=== PATIENT | female | born 1970 | race Caucasian/White ===

== ENCOUNTER 2016-12-31 23:43 | Emergency (ER) | payer OTHER ==
[~2016-12-31] VITALS: Ht 154.9 cm; Wt 84.3 kg
[2016-12-31 23:51] VITALS: TEMP 36.5; Ht 154.9 cm; Wt 84.3 kg
[2017-01-01] MEDS ORDERED: XYLOCAINE 1%/SOD BICARB 20 ML VIAL INFIL ONE (00:13)
[2017-01-01] MEDS ORDERED: GLC/500 PO (00:14)
[2017-01-01] MEDS ORDERED: OXYCODONE IR HOME PACK PO ONE (00:30)
[2017-01-01] MEDS ORDERED: SEPTRA DS HOME PACK 1 EA VIAL PO ONE (00:30)
[2017-01-01] MEDS ORDERED: SULF800T23 PO (00:37)
[2017-01-01 00:39] VITALS: BP 118/71; PULSE 82; O2SAT 99
--- NOTE | 2017-01-01 04:25 | EMERGENCY ROOM VISIT NOTE ---
History First contact with patient: 00:20 Chief Complaint: PELVIC PAIN Stated Complaint: SEVERE PAIN IIN LABIA AREA History of Present Illness The patient is a 46 year old female who presents to the Emergency Room with complaints of Right labial pain and swelling for the past few days. Patient has been squeezing and picking at the area. No history of abscesses before. No IV drug abuse. Patient denies chest pain, dyspnea, abdominal pain, vomiting , diarrhea, urinary symptoms, fever, chills. She is tolerate by mouth fluids and food. Review of Systems See HPI for pertinent positives & negatives. A total of 6 systems reviewed and were otherwise negative. Past Medical/Surgical History Medical Problems: (1) Cholecystectomy (2) Congenital hydrocephalus (3) CVA/TIa (4) Dilation and curettage (5) endometrial ablation (6) History of - tubal ligation (7) Polycystic ovaries (8) TOBACCO USE DISORDER Surgical Problems: (1) History of section Family History Patient reports no known family medical history. Social History Smoking Status: Never Smoker Alcohol Use: none Drug Use: none Marital Status: Occupation Status: employed Current/Historical Medications Scheduled Metformin Hcl (Glucophage), 500 MG PO BID Sulfa/Trimethoprim (Bactrim Ds 800MG/160MG), 1 TAB PO BID Allergies Coded Allergies: BEE STING (Verified Allergy, Unknown, Unknown., 01/04/16) Physical Exam Vital Signs Date Time Temp Pulse Resp B/P (MAP) Pulse Ox O2 Delivery O2 Flow Rate FiO2 01/01/17 00:39 82 16 118/71 99 Room Air 12/31/16 23:51 36.5 82 16 125/83 99 Room Air Pain Rating (0-10): 7.0 Physical Exam VITALS: Vitals are noted on the nurse's note and reviewed by myself. Vital signs stable. GENERAL: Pleasant female who appears in pain, in no acute distress, nondiaphoretic, well-developed well-nourished. SKIN: Capillary reflex less than 2 seconds. HEENT: Normocephalic. PERRLA. EOMI. Nares patent. Mucous membranes moist. Neck is supple without nuchal rigidity. HEART: Regular rate and rhythm without murmurs gallops or rubs. LUNGS: Clear to auscultation bilaterally without wheezes, rales or rhonchi. No retractions or accessory muscle use. ABDOMEN: Positive bowel sounds x 4. Normal tympanic percussion. Soft, nontender, without masses or organomegaly. Sutton sign negative. No guarding or rebound tenderness. exam: Right labia erythematous and edematous with fluctuance concerning for abscess. Sports Agent present and wound culture taken and sent to lab MUSCULOSKELETAL: No gross musculoskeletal defects . NEURO: Patient was alert and oriented to person place and time. Normal sensation to light and sharp touch. No focal neurological deficits. Medical Decision & Procedures Medications Administered Medications (Trade) Dose Ordered Sig/Josh Route Start Time Stop Time Status Last Admin Dose Admin Trimethoprim/ Sulfamethoxazole (Sulfameth/ Trimeth Ds 800/ 160MG Home Pack) 1 homepack UD ONCE PO 01/01/17 00:30 01/01/17 00:34 DC 01/01/17 00:50 1 HOMEPACK Oxycodone HCl (Roxicodone Immediate Rel 5MG Home Pack) 1 homepack UD ONCE PO 01/01/17 00:30 01/01/17 00:34 DC 01/01/17 00:50 1 HOMEPACK Procedure Incision & Drainage Indication: Abscess. Location: labia Verbal consent was obtained after the risks and benefits were explained, including but not limited to bleeding, scarring, infection, pain, and bone/joint /nerve damage. At this time, the risks of the procedure are less than the risks of NOT performing the procedure. A time out was taken and the correct patient and site identified. The skin was prepped with betadine and a sterile field set. The wound was anesthetized with 3 ml of 1% lidocaine without epinephrine. The abscess cavity was entered with a number 11 blade and purulent material expressed. Copious irrigation was performed using saline. The wound was explored for foreign bodies and none found. Debridement was not performed. Word catheter Packing placed with 3 mL of fluid and a sterile dressing applied. Detailed wound care instructions and signs and symptoms of worsening infection reviewed with the patient. No complications and the patient tolerated the procedure well. ED Course Prior records reviewed and summarized as above. Triage Nursing notes reviewed. The patient's history was concerning for swelling and redness of the skin. Differential diagnosis: Etiologies such as cellulitis, abscess, MRSA infection, necrotizing fasciitis, dermatitis, drug eruption, as well as others were entertained.. Physical examination: The physical examination was consistent with abscess ER treatment provided: I&D as above On reassessment the patient felt better. Diagnostics interpreted by me: The labs revealed culture pending Exam and history seem consistent with right labial abscess. Word catheter was placed. Patient started on antibiotics. Patient does not feel at risk for STIs. She follows with [facility]. She is advised follow-up in a few days for definitive care for her abscess that was drained. She is advised to take medications as directed. She is advised to return to the ER immediately for fevers, severe pain, worsening signs or symptoms or as needed. Patient had no lymphangitis. She is afebrile and nontoxic. She is well-appearing. By the evaluation outlined above emergent etiologies such as abscess, necrotizing fasciitis, DVT, as well as others were deemed relatively unlikely. The pt informed about the findings as listed above. All questions were answered and pleased with the treatment. Return instructions were outlined and the patient was discharged in stable condition. Outpatient prescription management: Bactrim Referral: The patient was referred back to [facility]NA[facility] and/or primary care physician for follow -up in 2 to 3 days for a recheck of the current condition. Medical Decision As above Impression Primary Impression: Abscess of right genital labia Departure Information Dispostion Home / Self-Care Condition GOOD Prescriptions Sulfa/Trimethoprim (Bactrim Ds 800MG/160MG) Tab 1 TAB PO BID for 9 Days, #18 TAB Prov: Vandana Doherty PA-C 01/01/17 Referrals Willem Kurtz,D[facility]. No Doctor, Assigned (PCP) Forms WORK / SCHOOL INSTRUCTIONS, HOME CARE DOCUMENTATION FORM, IMPORTANT VISIT INFORMATION Patient Instructions [facility], ED Abscess IandD Additional Instructions Trimethoprim-Sulfamethoxazole(Bactrim DS): Take one pill twice daily for 10 days for your skin infection. All antibiotics can cause diarrhea. If this occurs and you feel worse or it does not resolve in 1-2 days follow up with your doctor or return to the Emergency Department as this could be signs of serious underlying problems. Any medication can cause an allergic reaction, stop the pills immediately and return to the ER for rash, hives, breathing difficulties, or swelling. Ibuprofen(Motrin, Advil) may be used for fever or pain. Use 600mg every six hours as needed. Take with food. Avoid using more than 2400mg in a 24 hour period. Do not use 2400mg per day for more than three consecutive days without physician direction. Prolonged inappropriate use can lead to stomach upset or ulcers. (AND/OR) Acetaminophen(Tylenol) may be used for fever or pain. Use 1000mg every six hours as needed. Avoid using more than 3000mg in a 24 hour period. Leave Word catheter in place. Keep area dry and clean. Keep a pad on as this might drain. Do not pull this out. Rest and drink plenty of fluids. Continue current medications. Return to the ER for severe pain, persistent fevers, spreading redness, or any worsening of your condition. Follow up with your [facility]NA[facility] within 2-3 days for a recheck of the current condition.
== END 2017-01-01 00:54 | disposition home or self-care (01) ==
LOC: C.EDB 23:44 → C.EDC 01-01 00:54
DX: N76.4 Abscess of vulva (principal); Q03.9 Congenital hydrocephalus, unspecified; E28.2 Polycystic ovarian syndrome; Z86.73 Personal history of transient ischemic attack (TIA), and cerebral infarction without residual deficits; Z98.51 Tubal ligation status; Z79.84 Long term (current) use of oral hypoglycemic drugs

== ENCOUNTER 2017-07-19 20:31 | Emergency (ER) | payer OTHER ==
[~2017-07-19] VITALS: Ht 152.4 cm; Wt 88.9 kg
[~2017-07-19 20:31] MED LIST: GLC/500 PO
[2017-07-19 20:38] VITALS: TEMP 37.2; Ht 152.4 cm; Wt 88.9 kg
--- NOTE | 2017-07-19 20:57 | EMERGENCY ROOM VISIT NOTE ---
History Report prepared by Pineda: Dominic Yo Under the Supervision of: Dr. Amrit Shen M.D. First contact with patient: 20:47 Chief Complaint: FLU LIKE SX Stated Complaint: NIXON,NAUSEA,FLU History of Present Illness The patient is a 46 year old female who presents to the Emergency Room with complaints of persistent illness for the past 2 days. The patient states that she has been having body aches, headaches, cough, nausea, and she vomited. No hematemesis coffee-ground emesis bilious vomiting hematochezia or melena. No hemoptysis. 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 The patient states that she has a history of diverticulitis, and she states that she smokes. She denies any chances of . Source of History: patient Onset: a few days ago Position: other (global) Quality: other (illness) Timing: other (persistent) Associated Symptoms: + headache, + cough, + nausea, + vomiting Note: Associated symptoms: Body aches. Review of Systems See HPI for pertinent positives and negatives. A total of ten systems were reviewed and were otherwise negative. Past Medical & Surgical Medical Problems: (1) Cholecystectomy (2) Congenital hydrocephalus (3) CVA/TIa (4) Dilation and curettage (5) endometrial ablation (6) History of - tubal ligation (7) Polycystic ovaries (8) TOBACCO USE DISORDER Surgical Problems: (1) History of section Family History Patient reports no known family medical history. Social History Smoking Status: Current Some Day Smoker Alcohol Use: none Drug Use: none Marital Status: Occupation Status: employed Current/Historical Medications Scheduled Metformin Hcl (Glucophage), 500 MG PO BID Ondasetron Odt (Zofran Odt), 4 MG SL Q8H Oseltamivir (Tamiflu), 75 MG PO BID Spironolactone (Aldactone), 50 MG PO DAILY Scheduled PRN Guaifenesin/Codeine (Robitussin-Ac Syrup), 5 ML PO Q4H PRN for Cough Allergies Coded Allergies: BEE STING (Verified Allergy, Unknown, Unknown., 01/04/16) Physical Exam Vital Signs Date Time Temp Pulse Resp B/P (MAP) Pulse Ox O2 Delivery O2 Flow Rate FiO2 07/19/17 21:28 108 18 120/76 94 07/19/17 20:57 108 07/19/17 20:38 37.2 117 18 120/76 94 Room Air Physical Exam GENERAL: Awake, alert, well-appearing, in no distress HENT: Normocephalic, Atraumatic. no hemotympanum bilaterally, momin sign negative bilaterally. Oropharynx unremarkable. EYES: Normal conjunctiva. Sclera non-icteric. PERRL bilaterally. EOMI bilaterally. NECK: Supple. No nuchal rigidity. FROM. No JVD. No C-spine tenderness. RESPIRATORY: Clear to auscultation. No wheezes, rhonchi or rales bilaterally. CARDIAC: Tachycardic rate, normal rhythm. Extremities warm and well perfused. Equal palpable radial pulses to the bilateral upper extremities. Equal palpable DP pulses to the bilateral lower extremities. ABDOMEN: Soft, non-distended. No tenderness to palpation. No rebound or guarding. No masses. Rovsing Negative. RECTAL: Deferred. MUSCULOSKELETAL: Chest examination reveals no tenderness. The back is symmetrical on inspection without obvious abnormality. There is no CVA tenderness to palpation. No joint edema. LOWER EXTREMITIES: Calves are equal size bilaterally and non-tender. No edema. No discoloration. NEURO: Normal sensorium. No sensory or motor deficits noted. No pronator drift. No facial droop. No dysarthria. SKIN: No rash or jaundice noted. Medical Decision & Procedures Medications Administered Medications (Trade) Dose Ordered Sig/Josh Route Start Time Stop Time Status Last Admin Dose Admin Oseltamivir Phosphate (Tamiflu Cap) 75 mg NOW STAT PO 07/19/17 20:59 07/19/17 21:01 DC 07/19/17 21:23 75 MG Ondansetron HCl (Zofran Odt) 4 mg ONE ONCE PO 07/19/17 21:00 07/19/17 21:01 DC 07/19/17 21:23 4 MG Ondansetron HCl (ZOFRAN ODT 4MG Home Pack) 1 homepack UD ONCE PO 07/19/17 21:00 07/19/17 21:01 DC 07/19/17 21:23 1 HOMEPACK ED Course 2046: The patient was evaluated in room A12. A complete history and physical exam was performed. Patient's symptoms are consistent with influenza and given that she reports being tested positive for flu yesterday we'll discharge her with Tamiflu. Patient also having nausea, will discharge with prescription Zofran ODT. Return precautions were discussed with the patient and family and they were agreeable. All questions were answered, and written and verbal discharge instructions were given to the patient. 2058: Tamiflu Cap 75mg PO 2100: Zofran Odt Home Pack PO, Zofran Odt 4mg PO Medical Decision Patient's symptoms are consistent with influenza and given that she reports being tested positive for flu yesterday we'll discharge her with Tamiflu. Patient also having nausea, will discharge with prescription Zofran ODT. Return precautions were discussed with the patient and family and they were agreeable. All questions were answered, and written and verbal discharge instructions were given to the patient. Medication Reconcilliation Current Medication List: was personally reviewed by me Blood Pressure Screening Patient's blood pressure: Normal blood pressure Impression Primary Impression: Influenza-like symptoms Scribe Attestation The scribe's documentation has been prepared under my direction and personally reviewed by me in its entirety. I confirm that the note above accurately reflects all work, treatment, procedures, and medical decision making performed by me. The chart was completed utilizing [employer] Speech voice recognition software. Grammatical errors, random word insertions, pronoun errors, and incomplete sentences are an occasional consequence of this system due to software limitations, ambient noise, and hardware issues. Any formal questions or concerns about the content, text, or information contained within the body of this dictation should be directly addressed to the physician for clarification. Departure Information Dispostion Home / Self-Care Prescriptions Ondasetron Odt (ZOFRAN ODT) 4 Mg Tab 4 MG SL Q8H for Nausea, #30 TAB Prov: Amrit Shen M.D. 07/19/17 Oseltamivir (Tamiflu) 75 Mg Cap 75 MG PO BID for 5 Days, #10 CAP Prov: Amrit Shen M.D. 07/19/17 Referrals No Doctor, Assigned (PCP) Forms HOME CARE DOCUMENTATION FORM, IMPORTANT VISIT INFORMATION Patient Instructions ED Flu, My [facility]
[2017-07-19] MEDS ORDERED: OSELTAMIVIR PHOSPHATE 75 MG CAP PO STA (20:59)
[2017-07-19] MEDS ORDERED: ONDANSETRON 4MG OD TAB PO ONE (21:00)
[2017-07-19] MEDS ORDERED: ONDANSETRON HOME PACK 4MG OD TAB PO ONE (21:00)
[2017-07-19] MEDS ORDERED: ONDA4TAB10 SL (21:14)
[2017-07-19] MEDS ORDERED: OSEL75CA12 PO (21:14)
[2017-07-19 21:28] VITALS: BP 120/76; PULSE 108; O2SAT 94
[2017-07-19] MEDS ORDERED: GUAISYP4 PO (21:29)
[2017-07-19] MEDS ORDERED: SPIR50TA2 PO (21:29)
== END 2017-07-19 21:30 | disposition home or self-care (01) ==
LOC: C.EDB 20:32 → C.EDA 21:30
DX: J11.2 Influenza due to unidentified influenza virus with gastrointestinal manifestations (principal); R11.2 Nausea with vomiting, unspecified; R51 Headache; R05 Cough; F17.200 Nicotine dependence, unspecified, uncomplicated; Z79.899 Other long term (current) drug therapy

== ENCOUNTER 2018-03-01 16:57 | Emergency (ER) | payer OTHER ==
[~2018-03-01] VITALS: Ht 154.9 cm; Wt 86.7 kg
[~2018-03-01 16:57] MED LIST changes: +GUAISYP4 PO; +SPIR50TA2 PO
[2018-03-01 17:00] VITALS: TEMP 36.6; Ht 154.9 cm; Wt 86.7 kg
[2018-03-01] MEDS ORDERED: ACETAMINOPHEN IV 100 ML IV STA (17:22)
[2018-03-01] MEDS ORDERED: ONDANSETRON INJ 2 MG/ML 2 ML VIAL IV STA (17:22)
[2018-03-01] MEDS ORDERED: SODIUM CHLORIDE 0.9% 1000ML 1,000 ML IV STA (17:22)
[2018-03-01] MEDS ORDERED: OPTIRAY 320 IV PRN (17:30)
--- NOTE | 2018-03-01 17:52 | EMERGENCY ROOM VISIT NOTE ---
ED Visit Note First contact with patient: 17:09 CHIEF COMPLAINT: Right-sided abdominal pain HISTORY OF PRESENTING ILLNESS: This is a 47-year-old female who presents to the emergency department by private vehicle with complaint of right-sided abdominal pain for the past 4 days. She states the pain started out off and on, but has progressively gotten worse and is now constant. She states the worst pain is in the right lower part of her abdomen and it radiates up and across the top at times. The pain is worse with moving around, better with resting and lying still, currently rates as 7/10. She has tried ibuprofen for the pain with minimal relief. She has had associated nausea and a decreased appetite since yesterday, but denies any vomiting. She states that she has loose bowel movements, but states this is not unusual for her and she thinks that she has IBS, she is currently being worked up for this. She states that her pain is most intense right before and during a bowel movement, and feels better after moving her bowels. She denies any bloody or black stools. She denies any urinary symptoms. She denies any chest pain, shortness of breath, dizziness, syncope, back pain, unusual rash. She does report a history of diverticulitis, but states she has not had a flare in a while. She also has a history of PCOS she reports surgical history of cholecystectomy, bilateral tubal ligation, and uterine ablation, states she has not had a period since 2011. REVIEW OF SYSTEMS: A complete 10 point review of systems was reviewed with the patient with pertinent positives and negatives as per history of present illness. All else were negative. PAST MEDICAL HISTORY: Reviewed in chart, see problem list below. FAMILY HISTORY: She reports a strong family history of colon cancer and diverticulitis. SOCIAL HISTORY: Lives at home. She is a current everyday smoker. She denies alcohol use. ALLERGIES: Reviewed in chart, see below. PHYSICAL EXAM: CONSTITUTIONAL: Pleasant and cooperative. No acute distress. Mildly dehydrated , but otherwise well appearing and well nourished. HEENT: Normocephalic, atraumatic. Pupils equal, round and reactive to light, EOMI. TMs normal. Pharynx normal. Tacky mucous membranes. NECK: Supple, full active range of motion without discomfort. RESPIRATORY: Clear to auscultation bilaterally with no wheezing, crackles, rhonchi or stridor. Equal expansion bilaterally. CARDIOVASCULAR: Regular rate and rhythm with no murmurs, rubs or gallops. Normal peripheral perfusion. No edema. GASTROINTESTINAL: Diffuse abdominal tenderness throughout the right mid and lower abdomen to the midline, mild right upper quadrant tenderness. Positive McBurney's, positive Rovsing and psoas signs. Negative rebound, no guarding. Soft, nondistended, obese abdomen. No palpable masses or HSM. Bowel sounds present in all quadrants. MUSCULOSKELETAL: Full range of motion of all joints without discomfort. INTEGUMENTARY: No rash or other significant dermatologic conditions noted. NEUROLOGIC: Alert and oriented X 4 with normal affect. Normal strength and sensation in all 4 extremities. No focal neurologic deficits noted. Normal speech. Normal gait observed. ED COURSE AND MEDICAL DECISION MAKING: CC: Patient presenting with complaint of right-sided abdominal pain DIFFERENTIAL DIAGNOSIS: Includes, but not limited to gastritis, food poisoning , colitis, diverticulitis, appendicitis, IBS, ovarian pathology, mesenteric adenitis, intra-abdominal abscess, constipation, gas pain, among others. INTERPRETATION OF LABS: No leukocytosis, no anemia, normal platelets, no significant electrolyte abnormalities, normal renal function, normal liver enzymes and lipase. Negative troponin. UA negative for infection, consistent with mild dehydration. Negative urine . IMAGING: CT OF THE ABDOMEN AND PELVIS WITH CONTRAST CLINICAL HISTORY: Right lower quadrant abdominal pain. COMPARISON STUDY: CT of the abdomen and pelvis January 03, 2016. TECHNIQUE: Following IV administration of 115 mL of Optiray-320, axial images of the abdomen and pelvis were obtained from the lung bases to the proximal femurs. Images were reviewed in the axial, sagittal, and coronal planes. IV contrast was administered without complication. A dose lowering technique was utilized adhering to the principles of ALARA. CT DOSE: 1055.62 mGy.cm FINDINGS: Lung bases are clear. There is no biliary ductal dilatation status post cholecystectomy. The liver, spleen, adrenal glands, kidneys and pancreas are unremarkable. There is no hydronephrosis or hydroureter. The caliber and wall thickness of small and large bowel are normal. Extensive colonic diverticulosis is noted without evidence for acute diverticulitis. There is no lymphadenopathy or abscess. No suspicious osseous lesions are noted. Major vasculature is patent. Small fat-containing ventral and umbilical hernias are noted. IMPRESSION: 1. No acute process within the abdomen or pelvis. 2. Normal appendix. No bowel obstruction. 3. Extensive sigmoid diverticulosis without evidence for acute diverticulitis. EKG: Shows normal sinus rhythm with a rate of 82 bpm, no ST or T-wave changes, no ectopy, no significant change when compared to previous EKG from 01/29/2014 by my interpretation. MEDICATION RECONCILIATION: I attest that I have personally reviewed the patient 's current medication list. INITIAL VITAL SIGNS REVIEW: I reviewed the patient's initial vital signs and interpret them as follows: T: Afebrile; BP: Mildly hypertensive; HR: Mildly tachycardic; RR: Within normal limits; Pulse Ox: Within normal limits on room air. Blood pressure screening: The patient was found to have an elevated blood pressure, which was felt to be situational. SUMMARY: Patient was evaluated at bedside, history and physical exam performed. Patient is alert and oriented, no acute distress, resting calmly in stretcher. Patient is diffusely tender throughout the right side of the abdomen, most tender in the right lower quadrant. No acute abdomen. Normal bowel sounds. EKG reviewed at bedside, noting normal sinus rhythm with no acute changes. Orders were placed at bedside for labs, UA and urine , IV fluids for hydration, IV Zofran for nausea, CT abdomen/pelvis with IV contrast to evaluate for abdominal pain. The patient was offered something for her pain, she did not want any narcotics. She was offered IV Tylenol which she did except. Patient discussed with Dr. Galicia, who agrees with my assessment and plan. Labs and imaging reviewed as above, no acute findings to explain patient's pain. Patient has had minimal improvement in her pain after the IV Ofirmev, she was offered something additional, to which she did agree. Bentyl IM 20 mg was ordered. Patient reassessed multiple times throughout ED stay, she has remained stable, tachycardia and hypotension resolved after fluids, and she reports that her pain is improved after the Bentyl. Patient was updated on all results and plan for discharge, she was encouraged to follow closely with her PCP. Rx for Bentyl was sent to the pharmacy, patient was educated regarding its use. She was also encouraged to follow-up with her workgroup leader. Patient was also given strict return precautions should her symptoms worsen, she verbalized understanding. Patient was discharged home in stable condition and ambulatory. Problem List Medical Problems: (1) Cholecystectomy Status: Resolved (2) Congenital hydrocephalus Status: Resolved (3) Dilation and curettage Status: Resolved (4) endometrial ablation Status: Resolved (5) History of - tubal ligation Status: Resolved (6) Polycystic ovaries Status: Chronic (7) TOBACCO USE DISORDER Status: Chronic Surgical Problems: (1) History of section Status: Resolved Current/Historical Medications Scheduled Dicyclomine Hcl (Bentyl), 1 CAP PO TID Metformin Hcl (Glucophage), 500 MG PO BID Spironolactone (Aldactone), 50 MG PO DAILY Allergies Coded Allergies: BEE STING (Verified Allergy, Unknown, Unknown., 03/01/18) Vital Signs Date Time Temp Pulse Resp B/P (MAP) Pulse Ox O2 Delivery O2 Flow Rate FiO2 03/01/18 20:39 70 18 99/68 98 03/01/18 19:21 72 18 99/51 98 Room Air 03/01/18 18:06 83 03/01/18 17:00 36.6 105 20 132/89 98 Room Air Laboratory Results 03/01/18 17:43 Red Blood Count 5.24, Mean Corpuscular Volume 89.7, Mean Corpuscular Hemoglobin 30.7, Mean Corpuscular Hemoglobin Concent 34.3, Mean Platelet Volume 10.9, Neutrophils (%) (Auto) 63.4, Lymphocytes (%) (Auto) 25.3, Monocytes (%) (Auto) 7.9, Eosinophils (%) (Auto) 2.6, Basophils (%) (Auto) 0.4, Neutrophils # (Auto) 5.33, Lymphocytes # (Auto) 2.12, Monocytes # (Auto) 0.66, Eosinophils # (Auto) 0.22, Basophils # (Auto) 0.03 03/01/18 17:43 Test 03/01/18 17:43 White Blood Count 8.39 K/uL (4.8-10.8) Red Blood Count 5.24 M/uL (4.2-5.4) Hemoglobin 16.1 g/dL (12.0-16.0) Hematocrit 47.0 % (37-47) Mean Corpuscular Volume 89.7 fL (80-100) Mean Corpuscular Hemoglobin 30.7 pg (25-34) Mean Corpuscular Hemoglobin Concent 34.3 g/dl (32-36) Platelet Count 210 K/uL (130-400) Mean Platelet Volume 10.9 fL (7.4-10.4) Neutrophils (%) (Auto) 63.4 % Lymphocytes (%) (Auto) 25.3 % Monocytes (%) (Auto) 7.9 % Eosinophils (%) (Auto) 2.6 % Basophils (%) (Auto) 0.4 % Neutrophils # (Auto) 5.33 K/uL (1.4-6.5) Lymphocytes # (Auto) 2.12 K/uL (1.2-3.4) Monocytes # (Auto) 0.66 K/uL (0.11-0.59) Eosinophils # (Auto) 0.22 K/uL (0-0.5) Basophils # (Auto) 0.03 K/uL (0-0.2) RDW Standard Deviation 41.7 fL (36.4-46.3) RDW Coefficient of Variation 12.7 % (11.5-14.5) Immature Granulocyte % (Auto) 0.4 % Immature Granulocyte # (Auto) 0.03 K/uL (0.00-0.02) Urine Color DK YELLOW Urine Appearance CLEAR (CLEAR) Urine pH 5.0 (4.5-7.5) Urine Specific Bard 1.031 (1.000-1.030) Urine Protein NEG (NEG) Urine Glucose (UA) NEG (NEG) Urine Ketones NEG (NEG) Urine Occult Blood NEG (NEG) Urine Nitrite NEG (NEG) Urine Bilirubin NEG (NEG) Urine Urobilinogen NEG (NEG) Urine Leukocyte Esterase NEG (NEG) Urine Test NEG (NEG) Anion Gap 10.0 mmol/L (3-11) Est Creatinine Clear Calc Drug Dose 74.8 ml/min Estimated GFR () 84.8 Estimated GFR (Non- 73.2 BUN/Creatinine Ratio 17.0 (10-20) Calcium Level 8.9 mg/dl (8.5-10.1) Total Bilirubin 0.2 mg/dl (0.2-1) Direct Bilirubin mg/dl (0-0.2) Aspartate Amino Transf (AST/SGOT) 21 U/L (15-37) Alanine Aminotransferase (ALT/SGPT) 36 U/L (12-78) Alkaline Phosphatase 64 U/L (45-117) Troponin I < 0.015 ng/ml (0-0.045) Total Protein 7.0 gm/dl (6.4-8.2) Albumin 3.6 gm/dl (3.4-5.0) Lipase 124 U/L (73-393) Chemistry Specimen Hemolysis Medications Administered Medications (Trade) Dose Ordered Sig/Josh Route Start Time Stop Time Status Last Admin Dose Admin Sodium Chloride 1,000 ml @ 999 mls/hr Q1H1M STAT IV 03/01/18 17:22 03/01/18 18:22 DC 03/01/18 18:09 999 MLS/HR Ondansetron HCl (Zofran Inj) 4 mg NOW STAT IV 03/01/18 17:22 03/01/18 17:27 DC 03/01/18 18:09 4 MG Acetaminophen 100 ml @ 400 mls/hr NOW STAT IV 03/01/18 17:22 03/01/18 17:36 DC 03/01/18 18:12 400 MLS/HR Dicyclomine HCl (Bentyl Inj) 20 mg NOW ONCE IM 03/01/18 20:00 03/01/18 20:01 DC 03/01/18 20:02 20 MG Departure Information Impression Primary Impression: Generalized abdominal pain Dispostion Home / Self-Care Condition GOOD Prescriptions Dicyclomine Hcl (BENTYL) 10 Mg Cap 1 CAP PO TID for 10 Days, #30 CAP 1 Refill Prov: Jamee Dinh CRNP 03/01/18 Referrals No Doctor, Assigned (PCP) Patient Instructions ED Abdominal Pain Unkn Cause, ED IBS, [facility] Additional Instructions You have been evaluated and treated in the Emergency Department today for your abdominal pain. Laboratory results and imaging studies have ruled out any emergent causes for your symptoms which would warrant admission or surgery. You have been prescribed Bentyl 10 mg tablets to be taken 1 tablet up to 3 times a day as needed for abdominal pain and cramping. Take as prescribed. For pain control, you can also use the following [id number] medicines (if >12 yo): - Regular strength (325mg/tab) Tylenol (acetaminophen) 2 tabs every 4-6 hours as needed. Do not exceed 10 tablets in a 24 hour period. Avoid taking more than 3000 mg of Tylenol per day. This includes any other sources of acetaminophen you may take on a regular basis. - Regular strength (200 mg/tab) Advil (ibuprofen) 3 tabs every 6-8 hours as needed. Do not exceed a dose of 2400 mg per day. Drink plenty of fluids to stay well hydrated. Please follow-up with your Primary Care Provider in the next few days. You should also follow-up with your workgroup leader. Return to the emergency department for severe worsening abdominal or back pain, worsening nausea/vomiting, vomiting blood, blood in your stool or urine, fevers > 101, severe dizziness or passing out, or any other concerns. Work Instructions Return To Work: 2 days
[2018-03-01 17:59] LABS: BASO % 0.4 %; BASO ABS # 0.03 K/uL (0-0.2); EOS % 2.6 %; EOS ABS # 0.22 K/uL (0-0.5); HEMOGLOBIN 16.1 g/dL (12.0-16.0); IG# 0.03 K/uL (0.00-0.02); LYMPH % 25.3 %; LYMPH ABS # 2.12 K/uL (1.2-3.4); MEAN CELL VOLUME 89.7 fL (80-100); MEAN CORPUSCULAR HEMOGLOBIN 30.7 pg (25-34); MEAN CORPUSCULAR HGB CONC 34.3 g/dl (32-36); MEAN PLATELET VOLUME 10.9 fL (7.4-10.4); MONO % 7.9 %; MONO ABS # 0.66 K/uL (0.11-0.59); NEUT % 63.4 %; NEUT ABS # 5.33 K/uL (1.4-6.5); PLATELET COUNT 210 K/uL (130-400); RED CELL DISTRIBUTION WIDTH CV 12.7 % (11.5-14.5); RED CELL DISTRIBUTION WIDTH SD 41.7 fL (36.4-46.3); WHITE BLOOD COUNT 8.39 K/uL (4.8-10.8)
[2018-03-01 18:33] LABS: ALBUMIN 3.6 gm/dl (3.4-5.0); ALT/SGPT 36 U/L (12-78); AST/SGOT 21 U/L (15-37); BLOOD UREA NITROGEN 16 mg/dl (7-18); CALCIUM 8.9 mg/dl (8.5-10.1); CARBON DIOXIDE 23 mmol/L (21-32); CREATININE 0.93 mg/dl (0.60-1.20); GLUCOSE 115 mg/dl (70-99); POTASSIUM 3.9 mmol/L (3.5-5.1); SODIUM 140 mmol/L (136-145)
[2018-03-01 18:37] LABS: ALKALINE PHOSPHATASE 64 U/L (45-117); LIPASE 124 U/L (73-393)
--- NOTE | 2018-03-01 19:28 | DIAGNOSTIC IMAGING REPORT ---
CT OF THE ABDOMEN AND PELVIS WITH CONTRAST CLINICAL HISTORY: Right lower quadrant abdominal pain. COMPARISON STUDY: CT of the abdomen and pelvis January 03, 2016. TECHNIQUE: Following IV administration of 115 mL of Optiray-320, axial images of the abdomen and pelvis were obtained from the lung bases to the proximal femurs. Images were reviewed in the axial, sagittal, and coronal planes. IV contrast was administered without complication. A dose lowering technique was utilized adhering to the principles of ALARA. CT DOSE: 1055.62 mGy.cm FINDINGS: Lung bases are clear. There is no biliary ductal dilatation status post cholecystectomy. The liver, spleen, adrenal glands, kidneys and pancreas are unremarkable. There is no hydronephrosis or hydroureter. The caliber and wall thickness of small and large bowel are normal. Extensive colonic diverticulosis is noted without evidence for acute diverticulitis. There is no lymphadenopathy or abscess. No suspicious osseous lesions are noted. Major vasculature is patent. Small fat-containing ventral and umbilical hernias are noted. IMPRESSION: 1. No acute process within the abdomen or pelvis. 2. Normal appendix. No bowel obstruction. 3. Extensive sigmoid diverticulosis without evidence for acute diverticulitis. Electronically signed by: Yadiel Santoyo M.D. 03/01/2018 7:27 PM Dictated Date/Time: 03/01/2018 7:21 PM
[2018-03-01] MEDS ORDERED: DICYCLOMINE HCL 10 MG/ML 2 ML AMP IM ONE (20:00)
[2018-03-01] MEDS ORDERED: DICY10CA55 PO (20:31)
[2018-03-01 20:39] VITALS: BP 99/68; PULSE 70; O2SAT 98
== END 2018-03-01 20:40 | disposition home or self-care (01) ==
LOC: C.EDB 16:59 → C.EDC 20:40
DX: R10.84 Generalized abdominal pain (principal); R11.0 Nausea; R63.0 Anorexia; E28.2 Polycystic ovarian syndrome; Z90.49 Acquired absence of other specified parts of digestive tract; Z79.84 Long term (current) use of oral hypoglycemic drugs; Z79.899 Other long term (current) drug therapy; Z91.030 Bee allergy status

== ENCOUNTER 2020-12-08 18:36 | Inpatient (IN) ==
[2020-12-08] MEDS ORDERED: methylPREDNISolone 125 MG/2 ML VIAL IV STA (18:49)
[2020-12-08] MEDS ORDERED: ALBUT/IPRATROP 3MG/0.5MG NEB 3 ML VIAL NEB ONE (18:49)
[2020-12-08 19:07] LABS: Basophils # (auto) 0.03 K/uL (0-0.2); Basophils % (auto) 0.3 %; Eosinophils # (auto) 0.29 K/uL (0-0.5); Eosinophils % (auto) 2.7 %; Hematocrit (blood only) 51.1 % (37-47); Hemoglobin 17.8 g/dL (12.0-16.0); Immature Granulocytes # (auto) 0.05 K/uL (0.00-0.02); Immature Granulocytes % (auto) 0.5 %; Lymphocytes # (auto) 3.97 K/uL (1.2-3.4); Lymphocytes % (auto) 37.5 %; Mean Corpuscular Hemoglobin 30.8 pg (25-34); Mean Corpuscular Hgb Conc 34.8 g/dL (32-36); Mean Corpuscular Volume 88.4 fL (80-100); Monocytes # (auto) 1.08 K/uL (0.11-0.59); Monocytes % (auto) 10.2 %; Neutrophils # (auto) 5.16 K/uL (1.4-6.5); Neutrophils % (auto) 48.8 %; Platelet Count 242 K/uL (130-400); RDW Coefficient of Variation 13.1 % (11.5-14.5); RDW Standard Deviation 42.2 fL (36.4-46.3); Red Blood Count 5.78 M/uL (4.2-5.4); White Blood Count 10.58 K/uL (4.8-10.8)
--- NOTE | 2020-12-08 19:18 | Emergency Department Note ---
Impression & Plan Acute respiratory distress, Acute bronchospasm, Hypoxia, Acute bronchitis due to chemical ED Provider Note NAME: SJ MONTE AGE: 50 SEX: F : 1970 ARRIVES VIA: Walk-In INFORMANT: Patient, ED PROVIDER(S): Oscar Tavarez DO CHIEF COMPLAINT: Shortness of breath HPI: The patient is a 50-year-old female who presented to the emergency department for evaluation of shortness of breath. The patient states that she was cleaning and mixed to chemicals together accidentally while cleaning in her bathroom. The patient noticed an acute onset of coughing and chest tightness. She states that she had a similar episode in the past. She presented to the emergency department via triage. She had very severe difficulty breathing. She states that she is had cough and chest tightness. She denies having any vomiting but did have significant nausea. She denies having any abdominal pain or fever. She states she also has a headache. She states her symptoms are moderate to severe and worsened with any ambulation. ROS: See above HPI for pertinent positives & negatives. A total of 10 systems reviewed and were otherwise negative. PAST MEDICAL HISTORY: See Below PAST SURGICAL HISTORY: See Below FAMILY HISTORY: See Below SOCIAL HISTORY: See Below HOME MEDICATIONS: See Below ALLERGIES: See Below VITALS: See Below PHYSICAL EXAMINATION: GENERAL: The patient is awake and alert. She is very anxious appearing and appears to be in significant distress. EYES: The conjunctivae are clear. The pupils are round and reactive. EARS, NOSE, MOUTH AND THROAT: The nose is without any evidence of any deformity. I thought NECK: The neck is nontender and supple. RESPIRATORY: Diminished breath sounds are noted throughout. There is significant tachypnea and conversational dyspnea. Scattered wheezing was noted in both upper lung rosales. CARDIOVASCULAR: Tachycardic rate with regular rhythm was noted. There was no definite murmur. GASTROINTESTINAL: The abdomen is soft. Abdomen is nontender. MUSCULOSKELETAL/EXTREMITIES: There is no evidence of gross deformity full range of motion is noted in the hips and shoulders. SKIN: Skin was warm and diaphoretic. No pedal edema was noted. NEUROLOGIC: Patient is awake alert and oriented x3. MEDICAL DECISION MAKING: The patient is a 50-year-old female who presented to the emergency department for an evaluation of difficulty breathing. The patient was exposed to chemicals while cleaning. She had significant bronchospasm upon arrival to the emergency department. The patient was treated with an hour-long bronchodilator treatment. She was reevaluated multiple times. Symptoms slowly improved but the patient still had significant tachypnea as well as hypoxia. I discussed the patient's laboratory and radiographic studies with her. She was treated with steroids and IV fluids as well. Given her ongoing symptoms I discussed her case with the on- call [facility] hospitalist group. They have agreed to evaluate the patient in the emergency department for further management and disposition. Triage Nursing notes reviewed. Prior medical records reviewed Vital Signs: reviewed and remarkable for hypoxia. Differential diagnosis: Reactive airway disease, pneumonia, pneumothorax, COPD, CHF, infections, cardiac ischemia, pulmonary embolism, musculoskeletal, gastrointestinal, as well as other pathologies. ER treatment provided: See below Diagnostics interpreted by me: ECG: EKG was obtained in the emergency department. My interpretation is sinus tachycardia at 109 bpm. There was no ectopy. There was no acute ST segment abnormalities noted. This was compared to a tracing from September 282020. No significant changes were noted. Cardiac Monitoring: An order was placed for continuous cardiac monitoring. The monitor shows a rate of 98 bpm with sinus rhythm. Laboratory studies: As stated above and show below. Imaging studies: See below Consultation(s): [id number]: I discussed this case with Dr. Jackson. He will evaluate the patient in the emergency department for further management. ED COURSE: Procedures: none PDMP:reviewed and no issues Critical Care: I have personally spent greater than 40 minutes of critical care time in the direct management of this patient. This includes bedside care, interpretation of diagnostic studies, and testing, discussion with consultants, patient, and family members, and other required patient management activities. This 40 minutes is in excess of all separately billable procedures. Past Med/Surg History Medical History (Updated 12/08/20 @ 23:48 by Oscar Tavarez DO) Abdominal pain Abscess of right genital labia Cholecystectomy (10/28/12) Coccyx contusion Colitis Congenital hydrocephalus (10/28/12) Diarrhea Dilation and curettage (10/28/12) Dizziness Dizziness Enteritis Finger laceration Generalized anxiety disorder (10/28/12) History of - tubal ligation (10/28/12) Hypokalemia Low back pain Lower GI bleeding Lower GI bleeding Lower GI bleeding Nausea Near syncope Polycystic ovaries (10/28/12) Vertigo Surgical History History of section Family History Other No pertinent family history in first degree relatives Social History Smoking Status: Current every day smoker Hx Alcohol Use: No Preferred Language: Bahamian marital status: current occupational status: employed Feels Safe at Home: Yes Allergies Allergies Allergy/AdvReac Type Severity Reaction Status Date / Time bee venom protein (honey bee) Allergy Unknown Unknown. Verified 12/08/20 20:14 Home Meds Home Medications Medication Instructions Recorded Confirmed ammonium lactate 1 applic TOPICAL UD PRN 09/28/20 12/08/20 spironolactone [Aldactone] 50 mg PO BID 09/28/20 12/08/20 cetirizine 10 mg PO DAILY 12/08/20 12/08/20 fluticasone propionate 2 spray INTRANASAL DAILY PRN 12/08/20 12/08/20 Results & Data (ED) Vital Signs Vital Signs - 24 hr 12/08/20 18:39 12/08/20 18:48 12/08/20 18:49 Temperature 35.9 C L Temperature Source Temporal Artery Scan Pulse Rate 127 H 130 H 111 H Pulse Rate [Apical] Pulse Rate from SpO2 Sensor 131 H Respiratory Rate 28 H 23 30 H Respiratory Effort / Characteristics Non-Labored Spontaneous Labored Retracting Respiratory Depth Normal Respiratory Pattern Regular Tachypnea Blood Pressure 115/94 Blood Pressure Mean 101 Pulse Oximetry 89 L 99 98 Oxygen Delivery Method Room Air Non-rebreather Oxygen Flow Rate 15 Sepsis Recent Fever Within 48 Hours No Sepsis New/Unexplained Change in Mental Status No Sepsis Action Taken by Nursing Physician Notified 12/08/20 18:51 12/08/20 18:59 12/08/20 19:00 Temperature Temperature Source Pulse Rate 117 H 116 H 117 H Pulse Rate [Apical] Pulse Rate from SpO2 Sensor 120 H 116 H Respiratory Rate 20 22 24 Respiratory Effort / Characteristics Respiratory Depth Respiratory Pattern Blood Pressure 129/77 Blood Pressure Mean 94 Pulse Oximetry 99 98 Oxygen Delivery Method Oxygen Flow Rate Sepsis Recent Fever Within 48 Hours Sepsis New/Unexplained Change in Mental Status Sepsis Action Taken by Nursing 12/08/20 19:02 12/08/20 19:10 12/08/20 19:20 Temperature Temperature Source Pulse Rate 112 H 114 H Pulse Rate [Apical] 119 H Pulse Rate from SpO2 Sensor 112 H 114 H Respiratory Rate 25 H 11 L Respiratory Effort / Characteristics Spontaneous Labored Respiratory Depth Respiratory Pattern Blood Pressure Blood Pressure Mean Pulse Oximetry 99 98 98 Oxygen Delivery Method Non-rebreather Oxygen Flow Rate 15 Sepsis Recent Fever Within 48 Hours Sepsis New/Unexplained Change in Mental Status Sepsis Action Taken by Nursing 12/08/20 19:30 12/08/20 19:40 12/08/20 19:50 Temperature Temperature Source Pulse Rate 113 H 120 H 120 H Pulse Rate [Apical] Pulse Rate from SpO2 Sensor 112 H 120 H 120 H Respiratory Rate 15 19 22 Respiratory Effort / Characteristics Respiratory Depth Respiratory Pattern Blood Pressure Blood Pressure Mean Pulse Oximetry 98 99 99 Oxygen Delivery Method Oxygen Flow Rate Sepsis Recent Fever Within 48 Hours Sepsis New/Unexplained Change in Mental Status Sepsis Action Taken by Nursing 12/08/20 20:00 12/08/20 20:10 12/08/20 20:12 Temperature Temperature Source Pulse Rate 119 H 114 H 116 H Pulse Rate [Apical] Pulse Rate from SpO2 Sensor 117 H 115 H 115 H Respiratory Rate 16 18 15 Respiratory Effort / Characteristics Respiratory Depth Respiratory Pattern Blood Pressure 131/76 Blood Pressure Mean 94 Pulse Oximetry 98 99 96 Oxygen Delivery Method Room Air Oxygen Flow Rate Sepsis Recent Fever Within 48 Hours Sepsis New/Unexplained Change in Mental Status Sepsis Action Taken by Nursing 12/08/20 20:20 12/08/20 20:30 12/08/20 20:40 Temperature Temperature Source Pulse Rate 121 H 114 H 117 H Pulse Rate [Apical] Pulse Rate from SpO2 Sensor 123 H 114 H 117 H Respiratory Rate 14 26 H 22 Respiratory Effort / Characteristics Respiratory Depth Respiratory Pattern Blood Pressure 116/72 Blood Pressure Mean 86 Pulse Oximetry 96 90 90 Oxygen Delivery Method Oxygen Flow Rate Sepsis Recent Fever Within 48 Hours Sepsis New/Unexplained Change in Mental Status Sepsis Action Taken by Nursing 12/08/20 20:50 12/08/20 21:00 12/08/20 21:10 Temperature Temperature Source Pulse Rate 113 H 127 H 112 H Pulse Rate [Apical] Pulse Rate from SpO2 Sensor 115 H 127 H 113 H Respiratory Rate 34 H 17 18 Respiratory Effort / Characteristics Respiratory Depth Respiratory Pattern Blood Pressure 121/80 Blood Pressure Mean 93 Pulse Oximetry 88 L 92 93 Oxygen Delivery Method Oxygen Flow Rate Sepsis Recent Fever Within 48 Hours Sepsis New/Unexplained Change in Mental Status Sepsis Action Taken by Nursing 12/08/20 21:20 12/08/20 21:30 12/08/20 21:31 Temperature Temperature Source Pulse Rate 120 H 121 H 112 H Pulse Rate [Apical] Pulse Rate from SpO2 Sensor 113 H 113 H 111 H Respiratory Rate 31 H 18 20 Respiratory Effort / Characteristics Respiratory Depth Respiratory Pattern Blood Pressure 121/80 Blood Pressure Mean 93 Pulse Oximetry 91 92 91 Oxygen Delivery Method Oxygen Flow Rate Sepsis Recent Fever Within 48 Hours Sepsis New/Unexplained Change in Mental Status Sepsis Action Taken by Nursing 12/08/20 21:40 12/08/20 21:50 12/08/20 22:00 Temperature Temperature Source Pulse Rate 108 H 102 H 102 H Pulse Rate [Apical] Pulse Rate from SpO2 Sensor 109 H 104 H 102 H Respiratory Rate 22 31 H 27 H Respiratory Effort / Characteristics Respiratory Depth Respiratory Pattern Blood Pressure Blood Pressure Mean Pulse Oximetry 92 91 Oxygen Delivery Method Oxygen Flow Rate Sepsis Recent Fever Within 48 Hours Sepsis New/Unexplained Change in Mental Status Sepsis Action Taken by Nursing 12/08/20 22:10 12/08/20 22:20 12/08/20 22:30 Temperature Temperature Source Pulse Rate 104 H 103 H 105 H Pulse Rate [Apical] Pulse Rate from SpO2 Sensor 99 H 108 H 104 H Respiratory Rate 22 16 15 Respiratory Effort / Characteristics Respiratory Depth Respiratory Pattern Blood Pressure Blood Pressure Mean Pulse Oximetry 94 94 93 Oxygen Delivery Method Oxygen Flow Rate Sepsis Recent Fever Within 48 Hours Sepsis New/Unexplained Change in Mental Status Sepsis Action Taken by Snf Medications Current Medication List: was personally reviewed by me Laboratory Data Attestation: I reviewed the patient's lab results. Result diagrams: 12/08/20 18:57 12/08/20 18:57 Lab Results 12/08/20 12/08/20 12/08/20 Range/Units 18:57 18:57 18:57 WBC 10.58 (4.8-10.8) K/uL RBC 5.78 H (4.2-5.4) M/uL Hgb 17.8 H (12.0-16.0) g/dL Hct 51.1 H (37-47) % MCV 88.4 (80-100) fL MCH 30.8 (25-34) pg MCHC 34.8 (32-36) g/dL RDW Std Deviation 42.2 (36.4-46.3) fL RDW Coeff of Nadira 13.1 (11.5-14.5) % Plt Count 242 (130-400) K/uL MPV 11.0 H (7.4-10.4) fL Immature Gran % (Auto) 0.5 % Neut % (Auto) 48.8 % Lymph % (Auto) 37.5 % [place] % (Auto) 10.2 % Eos % (Auto) 2.7 % Baso % (Auto) 0.3 % Neut # (Auto) 5.16 (1.4-6.5) K/uL Lymph # (Auto) 3.97 H (1.2-3.4) K/uL [place] # (Auto) 1.08 H (0.11-0.59) K/uL Eos # (Auto) 0.29 (0-0.5) K/uL Baso # (Auto) 0.03 (0-0.2) K/uL Immature Gran # (Auto) 0.05 H (0.00-0.02) K/uL VBG pH (7.36-7.41) VBG pCO2 (38-50) mmHg VBG pO2 mmHg VBG HCO3 mmol/L VBG O2 Saturation % VBG Base Excess mEq/L Barometric Pressure mm/Hg Sodium 140 (136-145) mmol/L Potassium 4.0 (3.5-5.1) mmol/L Chloride 106 (98-107) mmol/L Carbon Dioxide 26 (21-32) mmol/L Anion Gap 8.0 (3-11) BUN 19 H (7-18) mg/dl Creatinine 1.11 (0.6-1.2) mg/dl Est Cr Clr Drug Dosing 61.3 ml/min Est GFR ( Amer) 67.1 ml/min Est GFR (Non-Af Amer) 57.9 ml/min BUN/Creatinine Ratio 17.5 (10-20) Glucose 103 H (70-99) mg/dl Calcium 10.1 (8.5-10.1) mg/dl Magnesium (1.8-2.4) mg/dl Total Bilirubin 0.3 (0.2-1) mg/dl AST 30 (15-37) U/L ALT 40 (12-78) U/L Alkaline Phosphatase 76 (45-117) U/L Troponin I < 0.015 (0-0.045) ng/ml Total Protein 8.0 (6.4-8.2) gm/dl Albumin 4.1 (3.4-5.0) gm/dl Globulin 3.9 (2.5-4.0) gm/dl Albumin/Globulin Ratio 1.0 (0.9-2) Procalcitonin < 0.05 (0-0.5) ng/ml TSH (0.300-4.500) uIu/ml COVID-19 Eval Order SARS-CoV-2 (PCR) (Negative) 12/08/20 12/08/20 12/08/20 Range/Units 19:47 19:47 21:27 WBC (4.8-10.8) K/uL RBC (4.2-5.4) M/uL Hgb (12.0-16.0) g/dL Hct (37-47) % MCV (80-100) fL MCH (25-34) pg MCHC (32-36) g/dL RDW Std Deviation (36.4-46.3) fL RDW Coeff of Nadira (11.5-14.5) % Plt Count (130-400) K/uL MPV (7.4-10.4) fL Immature Gran % (Auto) % Neut % (Auto) % Lymph % (Auto) % [place] % (Auto) % Eos % (Auto) % Baso % (Auto) % Neut # (Auto) (1.4-6.5) K/uL Lymph # (Auto) (1.2-3.4) K/uL [place] # (Auto) (0.11-0.59) K/uL Eos # (Auto) (0-0.5) K/uL Baso # (Auto) (0-0.2) K/uL Immature Gran # (Auto) (0.00-0.02) K/uL VBG pH 7.37 (7.36-7.41) VBG pCO2 48 (38-50) mmHg VBG pO2 45 mmHg VBG HCO3 27 mmol/L VBG O2 Saturation 82.3 % VBG Base Excess 1.0 mEq/L Barometric Pressure 732.1 mm/Hg Sodium (136-145) mmol/L Potassium (3.5-5.1) mmol/L Chloride (98-107) mmol/L Carbon Dioxide (21-32) mmol/L Anion Gap (3-11) BUN (7-18) mg/dl Creatinine (0.6-1.2) mg/dl Est Cr Clr Drug Dosing ml/min Est GFR ( Amer) ml/min Est GFR (Non-Af Amer) ml/min BUN/Creatinine Ratio (10-20) Glucose (70-99) mg/dl Calcium (8.5-10.1) mg/dl Magnesium 2.3 (1.8-2.4) mg/dl Total Bilirubin (0.2-1) mg/dl AST (15-37) U/L ALT (12-78) U/L Alkaline Phosphatase (45-117) U/L Troponin I (0-0.045) ng/ml Total Protein (6.4-8.2) gm/dl Albumin (3.4-5.0) gm/dl Globulin (2.5-4.0) gm/dl Albumin/Globulin Ratio (0.9-2) Procalcitonin (0-0.5) ng/ml TSH 1.500 (0.300-4.500) uIu/ml COVID-19 Eval Order Covid19 at [facility] SARS-CoV-2 (PCR) (Negative) 12/08/20 Range/Units 21:27 WBC (4.8-10.8) K/uL RBC (4.2-5.4) M/uL Hgb (12.0-16.0) g/dL Hct (37-47) % MCV (80-100) fL MCH (25-34) pg MCHC (32-36) g/dL RDW Std Deviation (36.4-46.3) fL RDW Coeff of Nadira (11.5-14.5) % Plt Count (130-400) K/uL MPV (7.4-10.4) fL Immature Gran % (Auto) % Neut % (Auto) % Lymph % (Auto) % [place] % (Auto) % Eos % (Auto) % Baso % (Auto) % Neut # (Auto) (1.4-6.5) K/uL Lymph # (Auto) (1.2-3.4) K/uL [place] # (Auto) (0.11-0.59) K/uL Eos # (Auto) (0-0.5) K/uL Baso # (Auto) (0-0.2) K/uL Immature Gran # (Auto) (0.00-0.02) K/uL VBG pH (7.36-7.41) VBG pCO2 (38-50) mmHg VBG pO2 mmHg VBG HCO3 mmol/L VBG O2 Saturation % VBG Base Excess mEq/L Barometric Pressure mm/Hg Sodium (136-145) mmol/L Potassium (3.5-5.1) mmol/L Chloride (98-107) mmol/L Carbon Dioxide (21-32) mmol/L Anion Gap (3-11) BUN (7-18) mg/dl Creatinine (0.6-1.2) mg/dl Est Cr Clr Drug Dosing ml/min Est GFR ( Amer) ml/min Est GFR (Non-Af Amer) ml/min BUN/Creatinine Ratio (10-20) Glucose (70-99) mg/dl Calcium (8.5-10.1) mg/dl Magnesium (1.8-2.4) mg/dl Total Bilirubin (0.2-1) mg/dl AST (15-37) U/L ALT (12-78) U/L Alkaline Phosphatase (45-117) U/L Troponin I (0-0.045) ng/ml Total Protein (6.4-8.2) gm/dl Albumin (3.4-5.0) gm/dl Globulin (2.5-4.0) gm/dl Albumin/Globulin Ratio (0.9-2) Procalcitonin (0-0.5) ng/ml TSH (0.300-4.500) uIu/ml COVID-19 Eval Order SARS-CoV-2 (PCR) NEGATIVE (Negative) Administered Medications Lactated Ringer's (Lr) 1,000 mls @ 500 mls/hr IV .Q2H ONE Stop: 12/08/20 23:50 Last Admin: 12/08/20 22:05 Dose: 500 mls/hr Documented by: [id number] Lactated Ringer's (Lr) 1,000 mls @ 80 mls/hr IV .[id number] ONE Stop: 12/09/20 12:29 Last Admin: 12/08/20 23:32 Dose: 80 mls/hr Documented by: [id number] Discontinued Medications Albuterol (Albut/Ipratrop 3mg/0.5mg Neb 3 Ml Vial) 12 ml NEB ONE ONE Stop: 12/08/20 18:50 Last Admin: 12/08/20 19:01 Dose: 12 ml Documented by: [id number] Benzonatate (Benzonatate 100 Mg Capsule) 100 mg PO NOW STA Stop: 12/08/20 22:37 Last Admin: 12/08/20 22:54 Dose: 100 mg Documented by: [id number] Guaifenesin (Guaifenesin 600 Mg Tabcr) 600 mg PO ONE STA Stop: 12/08/20 22:37 Last Admin: 12/08/20 22:54 Dose: 600 mg Documented by: [id number] Ketorolac Tromethamine (Ketorolac Tromethamine 15 Mg/Ml Vial) 15 mg IV NOW STA Stop: 12/08/20 22:42 Last Admin: 12/08/20 22:54 Dose: 15 mg Documented by: [id number] Methylprednisolone (Methylprednisolone 125 Mg/2 Ml Vial) 125 mg IV NOW STA Stop: 12/08/20 18:50 Last Admin: 12/08/20 19:16 Dose: 125 mg Documented by: [id number] Imaging Data Radiologist's Impression: Chest X-Ray 12/08/20 18:49 XR chest 1V portable HISTORY: Dyspnea COMPARISON: Chest 01/29/2014. FINDINGS: The lungs are clear. Cardiac silhouette is normal in size. No pleural effusions. No pneumothorax. IMPRESSION: No acute process. ACT 112: Negative or not required by law. Electronically signed by: Taye Lee M.D. 12/08/2020 7:27 PM Discharge Plan Visit Data Chief Complaint: Shortness of Breath/Dyspnea Stated Complaint: SOB ED Provider: Oscar Tavarez Discharge Problem: Acute respiratory distress, Acute bronchospasm, Hypoxia, Acute bronchitis due to chemical Patient Disposition: Admitted As Inpatient Condition: Good Discharge Instructions Interventions: ED Discharge Assessment Last Done: 12/08/20 23:07
[2020-12-08 19:25] LABS: Alanine Aminotransferase 40 U/L (12-78); Albumin Level 4.1 gm/dl (3.4-5.0); Aspartate Aminotransferase 30 U/L (15-37); BUN Creatinine Ratio 17.5 (10-20); Blood Urea Nitrogen 19 mg/dl (7-18); Calcium 10.1 mg/dl (8.5-10.1); Carbon Dioxide 26 mmol/L (21-32); Chloride 106 mmol/L (98-107); Creatinine Clr Calc Pharmacy 61.3 ml/min; Est GFR (African American) 67.1 ml/min; Est GFR (Non-African American) 57.9 ml/min; Glucose 103 mg/dl (70-99); Sodium 140 mmol/L (136-145)
--- NOTE | 2020-12-08 19:29 | XRay Report ---
XR chest 1V portable HISTORY: Dyspnea COMPARISON: Chest 01/29/2014. FINDINGS: The lungs are clear. Cardiac silhouette is normal in size. No pleural effusions. No pneumot horax. IMPRESSION: No acute process. ACT 112: Negative or not required by law. Electronically signed by: Taye Lee M.D. 12/08/2020 7:27 PM
[2020-12-08 19:30] LABS: Alkaline Phosphatase 76 U/L (45-117); Bilirubin,Total 0.3 mg/dl (0.2-1); Globulin 3.9 gm/dl (2.5-4.0); Troponin I < 0.015 ng/ml (0-0.045)
[2020-12-08 20:04] LABS: Oxygen Saturation VBG 82.3 %; pH VBG 7.37 (7.36-7.41)
[2020-12-08] MEDS ORDERED: LACTATED RINGER'S 1,000 ML IV ONE (21:51)
[2020-12-08 22:27] LABS: Magnesium 2.3 mg/dl (1.8-2.4); Thyroid Stimulating Hormone 1.5 uIu/ml (0.300-4.500)
[2020-12-08] MEDS ORDERED: BENZONATATE 100 MG CAPSULE PO PRN (22:27)
--- NOTE | 2020-12-08 22:28 | History & Physical Report ---
Date of Service December 08, 2020 Assessment & Plan (1) Acute hypoxemic respiratory failure: Secondary to acute chemical inhalation insult Marked improvement after initial intervention at the ER hx IBS, improved symptoms after recently coming off Metformin for PCOS anxiety/mood disorder, at baseline ongoing tobacco abuse. Medical telemetry Supplemental O2 as needed Nebs RTC Short steroid course Pulmonary consult if without improvement Nicotine patch as needed DVT prophylaxis. Lovenox subcu Full code Text document was generated using [employer] voice recognition software. It may contain grammatical or spelling errors. Kindly contact undersigned for clarification of any documentation item in question. History of Present Illness Chief Complaint: Cough, shortness of breath Primary Care Provider: Mansoor Howard MD History obtained from patient and records. Medical history significant for IBS, recurrent diverticulitis, anxiety/mood disorder, ongoing tobacco abuse. Last confinement 2013 for colitis. Patient was cleaning a house bathroom today when she noted fumes coming off the cleaning rag she was used after mixing household chemicals. Patient noted sudden onset dry cough, chest tightness, and shortness of breath. Achy abdominal pain from coughing. No recent COVID-19 contacts. O2 sats 89 upon arrival at the ER. Marked improvement after Solu-Medrol and neb administration at the ER. 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 Verified 12/08/20 20:14 Home Medications Medication Instructions Recorded Confirmed Type ammonium lactate 1 applic TOPICAL UD PRN 09/28/20 12/08/20 History spironolactone [Aldactone] 50 mg PO BID 09/28/20 12/08/20 History cetirizine 10 mg PO DAILY 12/08/20 12/08/20 History fluticasone propionate 2 spray INTRANASAL DAILY PRN 12/08/20 12/08/20 History Past Med/Surg History Medical History (Updated 12/09/20 @ 03:29 by Armaan Arizmendi MD) Abdominal pain Abscess of right genital labia Cholecystectomy (10/28/12) Coccyx contusion Colitis Congenital hydrocephalus (10/28/12) Diarrhea Dilation and curettage (10/28/12) Dizziness Dizziness Enteritis Finger laceration Generalized anxiety disorder (10/28/12) History of - tubal ligation (10/28/12) Hypokalemia Low back pain Lower GI bleeding Lower GI bleeding Lower GI bleeding Nausea Near syncope Polycystic ovaries (10/28/12) Vertigo Surgical History History of section Family History Other No pertinent family history in first degree relatives Social History Smoking Status: Current every day smoker Cigarettes Per Day: 1/2 pack a day; Do You Dip or Chew Tobacco: No; Hx Alcohol Use: Yes Hx Substance Use: No Preferred Language: Kuwaiti Communication Ability: Effective Beliefs That Will Affect Care: None marital status: Current Living Situation: Spouse and Family current occupational status: employed Other Information That Helps Us Care for You: No Feels Safe at Home: Yes Safety Concerns: Feels Safe At This Time Assistive Devices: None Review of Systems Review of Systems: As per HPI, all 10 systems reviewed, all other ROS negative Physical Exam Physical Exam: GENERAL: Slightly uncomfortable, incessant coughing, obese, pleasant no respiratory distress SKIN: Normal color, cool HEENT: [place] palpebral conjunctivae, no ptosis, dry buccal mucosa NECK : Supple, short neck, no tenderness CHEST : Decreased breath sounds, no tenderness HEART : Tachycardic, no obvious murmurs ABDOMEN: Some distention, no overt tenderness EXTREMITIES : No LE swelling/tenderness, no other conspicuous deformities noted NEUROLOGIC : Coherent, no facial asymmetry, no other gross focality Results & Data Results & Data ([facility]) Vital Signs (Past 12 Hours) Vital Signs Temp Pulse Pulse Resp BP Pulse Ox 12/08/20 20:12 119 H 20 131/76 93 12/08/20 19:10 112 H 11 L 98 12/08/20 19:02 119 H 25 H 99 12/08/20 19:00 117 H 24 98 12/08/20 18:59 116 H 22 129/77 99 12/08/20 18:51 117 H 20 06/05/21 18:49 111 H 30 H 98 12/08/20 18:48 130 H 23 115/94 99 12/08/20 18:39 35.9 C L 127 H 28 H 89 L Laboratory Results Laboratory Results WBC 10.58 K/uL (4.8-10.8) 12/08/20 18:57 RBC 5.78 M/uL (4.2-5.4) H 12/08/20 18:57 Hgb 17.8 g/dL (12.0-16.0) H 12/08/20 18:57 Hct 51.1 % (37-47) H 12/08/20 18:57 MCV 88.4 fL (80-100) 12/08/20 18:57 MCH 30.8 pg (25-34) 12/08/20 18:57 MCHC 34.8 g/dL (32-36) 12/08/20 18:57 RDW Std Deviation 42.2 fL (36.4-46.3) 12/08/20 18:57 RDW Coeff of Nadira 13.1 % (11.5-14.5) 12/08/20 18:57 Plt Count 242 K/uL (130-400) 12/08/20 18:57 MPV 11.0 fL (7.4-10.4) H 12/08/20 18:57 Immature Gran % (Auto) 0.5 % 12/08/20 18:57 Neut % (Auto) 48.8 % 12/08/20 18:57 Lymph % (Auto) 37.5 % 12/08/20 18:57 Edmunds % (Auto) 10.2 % 12/08/20 18:57 Eos % (Auto) 2.7 % 12/08/20 18:57 Baso % (Auto) 0.3 % 12/08/20 18:57 Neut # (Auto) 5.16 K/uL (1.4-6.5) 12/08/20 18:57 Lymph # (Auto) 3.97 K/uL (1.2-3.4) H 12/08/20 18:57 Edmunds # (Auto) 1.08 K/uL (0.11-0.59) H 12/08/20 18:57 Eos # (Auto) 0.29 K/uL (0-0.5) 12/08/20 18:57 Baso # (Auto) 0.03 K/uL (0-0.2) 12/08/20 18:57 Immature Gran # (Auto) 0.05 K/uL (0.00-0.02) H 12/08/20 18:57 VBG pH 7.37 (7.36-7.41) 12/08/20 19:47 VBG pCO2 48 mmHg (38-50) 12/08/20 19:47 VBG pO2 45 mmHg 12/08/20 19:47 VBG HCO3 27 mmol/L 12/08/20 19:47 VBG O2 Saturation 82.3 % 12/08/20 19:47 VBG Base Excess 1.0 mEq/L 12/08/20 19:47 Barometric Pressure 732.1 mm/Hg 12/08/20 19:47 Sodium 140 mmol/L (136-145) 12/08/20 18:57 Potassium 4.0 mmol/L (3.5-5.1) 12/08/20 18:57 Chloride 106 mmol/L (98-107) 12/08/20 18:57 Carbon Dioxide 26 mmol/L (21-32) 12/08/20 18:57 Anion Gap 8.0 (3-11) 12/08/20 18:57 BUN 19 mg/dl (7-18) H 12/08/20 18:57 Creatinine 1.11 mg/dl (0.6-1.2) 12/08/20 18:57 Est Cr Clr Drug Dosing 61.3 ml/min 12/08/20 18:57 Est GFR ( Amer) 67.1 ml/min 12/08/20 18:57 Est GFR (Non-Af Amer) 57.9 ml/min 12/08/20 18:57 BUN/Creatinine Ratio 17.5 (10-20) 12/08/20 18:57 Glucose 103 mg/dl (70-99) H 12/08/20 18:57 Calcium 10.1 mg/dl (8.5-10.1) 12/08/20 18:57 Total Bilirubin 0.3 mg/dl (0.2-1) 12/08/20 18:57 AST 30 U/L (15-37) 12/08/20 18:57 ALT 40 U/L (12-78) 12/08/20 18:57 Alkaline Phosphatase 76 U/L (45-117) 12/08/20 18:57 Troponin I < 0.015 ng/ml (0-0.045) 12/08/20 18:57 Total Protein 8.0 gm/dl (6.4-8.2) 12/08/20 18:57 Albumin 4.1 gm/dl (3.4-5.0) 12/08/20 18:57 Globulin 3.9 gm/dl (2.5-4.0) 12/08/20 18:57 Albumin/Globulin Ratio 1.0 (0.9-2) 12/08/20 18:57 COVID-19 Eval Order Covid19 at [facility] 12/08/20 21:27 Impressions Chest X-Ray 12/08/20 18:49 XR chest 1V portable HISTORY: Dyspnea COMPARISON: Chest 01/29/2014. FINDINGS: The lungs are clear. Cardiac silhouette is normal in size. No pleural effusions. No pneumothorax. IMPRESSION: No acute process. ACT 112: Negative or not required by law. Electronically signed by: Taye Lee M.D. 12/08/2020 7:27 PM Diagnostic Findings EKG as per my interpretation : Rate 110, sinus tachycardia, LAD, LAFB, no ischemia
[2020-12-08] MEDS ORDERED: BENZONATATE 100 MG CAPSULE PO STA (22:36)
[2020-12-08] MEDS ORDERED: guaiFENesin 600 MG TABCR PO STA (22:36)
[2020-12-08] MEDS ORDERED: KETOROLAC TROMETHAMINE 15 MG/ML VIAL IV STA (22:41)
[2020-12-08] MEDS ORDERED: IBUPROFEN 200 MG TAB PO PRN (23:25)
[2020-12-08] MEDS ORDERED: PROMETHAZINE HCL 12.5 MG in SODIUM CHLORIDE 0.9% 50 ML IV PRN (23:25)
[2020-12-08] MEDS ORDERED: MoRPHine SULFATE 4 MG/ML 1 ML CARP\\VIAL IV PRN (23:25)
[2020-12-08] MEDS ORDERED: traMADol HCL 50 MG TABLET PO PRN (23:25)
[2020-12-08] MEDS ORDERED: LORazepam 0.25 MG/0.5 ML VIAL IV PRN (23:25)
[2020-12-09] MEDS ORDERED: LACTATED RINGER'S 1,000 ML IV ONE
[2020-12-09] MEDS: LEVALBUTEROL 1.25MG/0.5ML NEB INH SCH ×3 (00:57→13:17)
[2020-12-09] MEDS: IPRATROPIUM BROMIDE NEB SOLN 0.02% 2.5 ML VIAL INH SCH ×3 (00:57→13:17)
[2020-12-09] MEDS ORDERED: XOPENEX/ATROVENT 1.25mg/0.5MG NEB COMBO NEB SCH (01:00)
[2020-12-09 06:46] LABS: Basophils # (auto) 0.01 K/uL (0-0.2); Basophils % (auto) 0.1 %; Eosinophils # (auto) 0.01 K/uL (0-0.5); Eosinophils % (auto) 0.1 %; Hemoglobin 14.7 g/dL (12.0-16.0); Immature Granulocytes # (auto) 0.03 K/uL (0.00-0.02); Immature Granulocytes % (auto) 0.3 %; Lymphocytes % (auto) 8.6 %; Mean Corpuscular Hemoglobin 30.5 pg (25-34); Mean Corpuscular Hgb Conc 34.2 g/dL (32-36); Mean Corpuscular Volume 89.2 fL (80-100); Monocytes # (auto) 0.27 K/uL (0.11-0.59); Monocytes % (auto) 2.9 %; Neutrophils # (auto) 8.15 K/uL (1.4-6.5); Platelet Count 193 K/uL (130-400); RDW Standard Deviation 42.1 fL (36.4-46.3); Red Blood Count 4.82 M/uL (4.2-5.4); White Blood Count 9.27 K/uL (4.8-10.8)
[2020-12-09 07:16] LABS: BUN Creatinine Ratio 29.2 (10-20); Calcium 9.6 mg/dl (8.5-10.1); Creatinine Clr Calc Pharmacy 77.9 ml/min; Est GFR (African American) 88.8 ml/min; Est GFR (Non-African American) 76.6 ml/min; Potassium 4.3 mmol/L (3.5-5.1)
--- NOTE | 2020-12-09 08:32 | Electrocardiogram Report ---
Test Reason : Blood Pressure : / mmHG Vent. Rate : 109 BPM Atrial Rate : 109 BPM P-R Int : 184 ms QRS Dur : 078 ms QT Int : 336 ms P-R-T Axes : 068 -46 069 degrees QTc Int : 452 ms Sinus tachycardia Left anterior fascicular block Abnormal ECG When compared with ECG of 28-SEP-2020 17:51, Vent. rate has increased BY 36 BPM Left anterior fascicular block is now Present Confirmed by Mansoor Velazquez ([id number]) on 12/09/2020 8:31:53 AM Referred By: REFERRED SELF Confirmed By:Mansoor Velazquez
[2020-12-09] MEDS ORDERED: guaiFENesin 600 MG TABCR PO SCH (09:00)
[2020-12-09] MEDS ORDERED: ENOXAPARIN INJ 40 MG/0.4 ML SYR SQ SCH (09:00)
[2020-12-09] MEDS ORDERED: CETIRIZINE HCL 10 MG TABLET PO SCH (09:00)
[2020-12-09] MEDS ORDERED: predniSONE 20 MG TAB PO SCH (09:00)
[2020-12-09] MEDS ORDERED: CHLORASEPTIC 1.4% SOLN 180 ML BTL MT SCH (11:00)
[2020-12-09] MEDS ORDERED: IPRATROPIUM BROMIDE NEB SOLN 0.02% 2.5 ML VIAL INH PRN (13:18)
[2020-12-09] MEDS ORDERED: LEVALBUTEROL 1.25MG/0.5ML NEB INH PRN (13:18)
--- NOTE | 2020-12-09 14:09 | Hospitalist Progress Note ---
Date of Service December 09, 2020 Assessment & Plan (1) Acute hypoxemic respiratory failure: Secondary to acute chemical inhalation insult She was cleaning the bathroom with a new product that triggered her to develop dyspnea and cough CXR showed no acute process Received IV steroid in the ER and neb treatment in the ER No airway compromise Currently on Prednisone, Benzonatate cough suppressant and neb treatment Saturated well on RA Very anxious to go home today Chloraseptic spray added for the throat irritation Will discharge home with a short course of PO prednisone and prn albuterol Pt was advised to avoid smoking because that can irritate the throat more Pt was advised if she develops any SOB to seek medical attention Clinically improved significantly Tobacco abuse Counseling on smoking cessation Elevated glucose Possible related to IV steroid Will need to check hba1c outpatient DVT px on Lovenox Full code Disposition Will discharge home today Admission and Anticipated Discharge Date Admission Date: December 08, 2020 Subjective Pt was seen and examined for follow of chemical inhalation Lying in bed with no distress resting comfortable Pt said that was her first time using the product to clean the bathroom She said that her breathing feels alot better She said that her throat feels a little irritated She would like to go home today Denies any chest pain, palpitation, dizziness and SOB Review of Systems Review of Systems: All systems reviewed & are unremarkable except as noted in Subjective Physical Exam Physical Exam: General- No acute distress Head- atraumatic Eyes- PERRL, EOMI, ENT- oropharynx clear Neck- supple, no JVD Lungs- clear to auscultation Heart- regular rhythm; no murmur Abdomen- normal bowel sounds, soft, nontender Extremities- no calf tenderness Neuro- alert, oriented x 3; PERRL, EOMI; no facial palsy; no dysarthria Skin- warm & dry Results & Data Results & Data ([facility]) Vital Signs (Past 12 Hours) Vital Signs Temp Pulse Pulse Resp BP Pulse Ox 12/09/20 11:07 36.3 C L 91 H 20 101/61 95 12/09/20 07:28 89 18 92 12/09/20 06:57 86 12/09/20 06:47 36.7 C 82 18 98/61 L 93 12/09/20 04:04 36.5 C 91 H 18 103/60 94
--- NOTE | 2020-12-11 09:36 | Discharge Summary ---
Date of Service December 09, 2020 Admission HPI Per Admitting Provider History obtained from patient and records. Medical history significant for IBS, recurrent diverticulitis, anxiety/mood disorder, ongoing tobacco abuse. Last confinement 2013 for colitis. Patient was cleaning a house bathroom today when she noted fumes coming off the cleaning rag she was used after mixing household chemicals. Patient noted sudden onset dry cough, chest tightness, and shortness of breath. Achy abdo preeti pain from coughing. No recent COVID-19 contacts. O2 sats 89 upon arrival at the ER. Marked improvement after Solu-Medrol and neb administration at the ER. 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 Admission Exam Per Admitting Provider GENERAL: Slightly uncomfortable, incessant coughing, obese, pleasant no respiratory distress SKIN: Normal color, cool HEENT: [place] palpebral conjunctivae, no ptosis, dry buccal mucosa NECK : Supple, short neck, no tenderness CHEST : Decreased breath sounds, no tenderness HEART : Tachycardic, no obvious murmurs ABDOMEN: Some distention, no overt tenderness EXTREMITIES : No LE swelling/tenderness, no other conspicuous deformities noted NEUROLOGIC : Coherent, no facial asymmetry, no other gross focality Principal Diagnosis Acute hypoxemic respiratory failure Tobacco abuse Elevated glucose Discharge Exam General- No acute distress Head- atraumatic Eyes- PERRL, EOMI, ENT- oropharynx clear Neck- supple, no JVD Lungs- clear to auscultation Heart- regular rhythm; no murmur Abdomen- normal bowel sounds, soft, nontender Extremities- no calf tenderness Neuro- alert, oriented x 3; PERRL, EOMI; no facial palsy; no dysarthria Skin- warm & dry Discharge Data Allergies Allergy/AdvReac Type Severity Reaction Status Date / Time bee venom protein (honey bee) Allergy Unknown Unknown. Verified 12/08/20 20:14 Consultations 12/08/20 21:35 ED Decision to Admit Stat Ordered Studies XR chest 1V portable HISTORY: Dyspnea COMPARISON: Chest 01/29/2014. FINDINGS: The lungs are clear. Cardiac silhouette is normal in size. No pleural effusions. No pneumothorax. IMPRESSION: No acute process. ACT 112: Negative or not required by law. Electronically signed by: Taye Lee M.D. 12/08/2020 7:27 PM Dictated: 12/08/201924Transcribed: 12/08/201924 Hospital Course (1) Acute hypoxemic respiratory failure: Secondary to acute chemical inhalation insult She was cleaning the bathroom with a new product that triggered her to develop dyspnea and cough CXR showed no acute process Received IV steroid in the ER and neb treatment in the ER No airway compromise Currently on Prednisone, Benzonatate cough suppressant and neb treatment Saturated well on RA Very anxious to go home today Chloraseptic spray added for the throat irritation Will discharge home with a short course of PO prednisone and prn albuterol Pt was advised to avoid smoking because that can irritate the throat more Pt was advised if she develops any SOB to seek medical attention Clinically improved significantly Tobacco abuse Counseling on smoking cessation Elevated glucose Possible related to IV steroid Will need to check hba1c outpatient DVT px on Lovenox Full code Disposition Will discharge home today Total Time Total Time Spent Total Time Spent (In Minutes): 35 minutes Total Time Includes: Examination of the Patient, Discharge Planning, Medication Reconciliation, Communication With Other Providers and Other Discharge Plan Discharge Items Patient Disposition: Home - Self-Care Reason For Visit: RESP FAILURE Discharge Diagnosis: Acute hypoxemic respiratory failure Tobacco abuse Elevated glucose Condition on Discharge: Good Activity: Resume your previous activity Non-emergency contact: Primary Care Provider Call non-emergency contact if: you have any medication questions and your symptoms worsen Follow-up/Referrals: Mansoor Howard MD [Primary Care Provider] - Diet: Heart Healthy Addtl Attending Provider Instructions: Follow up with your primary care provider within 1 week ( Please call to schedule for the follow up appointment) Seek medical attention if your symptoms worsening or shortness of breath develop Counseling on smoking cessation ( Smoking can make your throat irritation worsening) Pending Studies at Discharge: No Stand-Alone Forms: My [facility], Smoking Cessation Medications and DC Order Prescriptions: New prednisone 20 mg Tablet 20 mg PO DAILY 3 Days Qty: 3 RF: 0 benzonatate [Tessalon Perles] 100 mg Capsule 100 mg PO TID PRN (Reason: cough) Qty: 15 RF: 0 albuterol sulfate 90 mcg/actuation HFA aerosol inhaler 2 inh inhalation Q6H PRN (Reason: shortness of breath or wheezing) Qty: 6.7 RF: 0 Continued cetirizine 10 mg tablet 10 mg PO DAILY RF: 0 fluticasone propionate 50 mcg/actuation spray,suspension 2 spray INTRANASAL DAILY PRN (Reason: allergies) RF: 0 ammonium lactate 12 % cream 1 applic TOPICAL UD PRN (Reason: Dry Skin) RF: 0 spironolactone [Aldactone] 50 mg tablet 50 mg PO BID RF: 0 Discharge Orders: Discharge Order (Routine); Ordered 12/09/20 Ordered By: Danilo Fortune Admission Data Admit Date/Time: 12/08/20 22:38 Attending Provider: Danilo Fortune Admit Provider: Armaan Arizmendi Primary Care Provider: Mansoor Howard Other Providers: Armaan Arizmendi Other Interventions: Discharge Summary Assessment (RN) Last Done: 12/09/20 15:19
== END 2020-12-09 16:46 | disposition home or self-care (01) | DRG 205 ==
LOC: ED 18:36 → 2N 22:38